=== PATIENT | female | born 1975 | race Caucasian/White ===

== ENCOUNTER 2019-08-26 18:18 | Emergency (ER) | payer BC, SELFPAY ==
[2019-08-26 18:20] VITALS: BP 133/83; PULSE 89; RESP 22; TEMP 36.4; O2SAT 99; BMI 27.8
--- NOTE | 2019-08-26 18:25 | EKG12_ITS ---
Test Reason : CHEST PAIN Blood Pressure : / mmHG Vent. Rate : 089 BPM Atrial Rate : 089 BPM P-R Int : 158 ms QRS Dur : 082 ms QT Int : 388 ms P-R-T Axes : 056 000 029 degrees QTc Int : 472 ms Normal sinus rhythm Normal ECG Confirmed by REEMA MAN ([id number]), greeting card editor HECTOR ZIMMERMAN ([id number]) on 09/02/2019 8:07:33 AM Referred By: ABIDA Confirmed By:REEMA MAN
--- NOTE | 2019-08-26 18:25 | CT_ITS ---
INDICATION: 43-year-old female. Abdominal pain COMPARISON: None. TECHNIQUE: Contiguous axial images were obtained through the abdomen after the administration of oral contrast, and intravenous contrast administration. CT scan done according to ALARA (As Low As Reasonably Achievable). CONTRAST: 100 mL of Omnipaque (350 mmol/mL) single-use vial was administered IV with 0 mL discarded. FINDINGS: Lung bases: Clear. Liver: No mass. No intrahepatic biliary dilatation. Gallbladder: No wall thickening. No stones. Common bile duct: Normal caliber. No stones. Spleen: Within normal limits. Pancreas: There is marked heterogeneous low-attenuation of the pancreatic head and uncinate process. Adrenals: No masses. Kidneys: No masses. No hydronephrosis. Lymph nodes: No adenopathy. Stomach, small bowel, and colon: There is severe bowel wall thickening and mural hyperenhancement involving the entire duodenum with associated mesenteric stranding and mild free fluid. The remainder the visualized large and small bowel is unremarkable in appearance. Peritoneal cavity: Prominent periduodenal stranding and free fluid. Osseous structures: No acute fracture or destructive lesion. Abdominal aorta: No aneurysm or dissection. CT/CTA Abdomen W/WO Contrast IMPRESSION: Acute inflammatory process involving the entire duodenum as well as the pancreatic head. It is difficult to determine if this process represents a primary duodenal etiology versus acute pancreatitis. Findings discussed with Physician: Roderick Davenport by Dr. Alba on 08/26/2019 7:39 PM via telephone. N.B. : The above information has been verbally conveyed by Enrique Alba to Roderick Davenport MD, on 08/26/2019 19:34:04 (ET). Electronically Signed: Enrique Alba, at 19:40 EDT Tel , Service support ,
--- NOTE | 2019-08-26 18:25 | CT_ITS ---
We are attempting to reach an attending provider to discuss findings. An addendum with communication details will be sent when the communication is complete. STUDY: CTA CHEST REASON FOR EXAM: Female, 43 years old. RADIATION DOSAGE (If Supplied By Facility): CTDIvol = ( 11.01 ) mGy, DLP = ( 700.82 ) mGycm TECHNIQUE: The examination was performed with the intravenous administration of 100 CC ISOUE 370. Post-processing of the angiographic images was performed, with multiplanar reformation and 3D reconstruction. Individualized dose optimization techniques were used for this CT. COMPARISON: None. FINDINGS: Minimally heterogeneous thyroid gland. Normal enhancement of the main pulmonary artery and right and left pulmonary arteries. Normal enhancement of the bilateral peripheral pulmonary arteries. There is no demonstrated pulmonary embolism. Normal thoracic aorta and visualized great vessels. There is no demonstrated aortic dissection. Normal heart and pericardium. Normal mediastinum. Normal hilar regions. Normal visualized trachea and bronchi. The lungs are well expanded. Normal pulmonary parenchyma. Partially calcified pleural-based nodule right upper lobe inferiorly measures 7 mm. Normal pleura. Normal chest wall structures. Normal osseous structures. Normal visualized upper abdomen. CT/CTA Chest W/WO Contrast IMPRESSION: No demonstrated pulmonary embolism or arterial dissection. Minimally heterogeneous thyroid can be further assessed with a dedicated thyroid ultrasound. At least partially calcified, 7 mm right pleural-based nodule as above. Fleischner Society Recommendations for Follow-up and Management of Nodules Smaller than 8 mm Detected Incidentally at Nonscreening CT. Nodule size < or = 4 mm: Low-Risk Patient - No follow-up needed. High-Risk Patient - Follow-up CT at 12 months; if unchanged, no further follow-up. Nodule size > 4-6 mm: Low-Risk Patient - Follow-up CT at 12 months; if unchanged, no further follow-up. High-Risk Patient - Initial follow-up CT at 6-12 months then at 18-24 months if no change. Nodule size > 6-8 mm: Low-Risk Patient - Initial follow-up CT at 6-12 months then at 18-24 months if no change. High-Risk Patient - Initial follow-up CT at 3-6 months then at 9-12 and 24 months if no change. Nodule size > 8 mm: Low-Risk Patient - Follow-up CT at around 3,9 and 24 months. Dynamic contrast-enhanced CT, PET and/or biopsy. High-Risk Patient - Same as for low-risk patient. Low-Risk = Minimal or absent history of smoking and of other known risk factors. High-Risk = History of smoking or of other known risk factors. Electronically Signed: Enrique Alba, at 19:31 EDT Tel , Service support ,
[2019-08-26] MEDS: 0.9% Normal Saline 1,000 ML 1000 ML IV (18:34)
[2019-08-26] MEDS: Ondansetron 4 MG/2 ML Vial IV (18:34)
--- NOTE | 2019-08-26 18:38 | ED.DCSUM_ITS ---
History of Present Illness Chief Complaint: Chest Pain Informant: Patient Onset: Today Context: Sudden Onset Timing: Continuous Current Severity: Moderate Maximum Severity: Severe Narrative: The patient is a 43-year-old female no significant medical history that presents to the emergency department with rather sudden onset midepigastric pain, nausea, vomiting, and pain into her back. The patient was in her normal state of health. She states she is been having some midepigastric pain and back pain along with heartburn for the past 2 days. She states today, however the pain was much worse. She was much more diaphoretic and nauseated. She denies any fevers or chills. She did recently start taking her control, but has no history of pulmonary embolus. There is no family history of dissection. Prior similar symptoms: No Recent Illness/Hospitalization: No Past Medical History - Allergies and Home Meds Allergies/Adverse Reactions: Allergies Sulfa (Sulfonamide Antibiotics) Allergy (Verified 08/26/19 18:19) Hives Primary Care Physician: Alondra Pierre MD [Primary Care Provider] - Prior records reviewed: Yes Past Medical History: None Surgical History: noncontributory Smoking Status: Never smoker Review of Systems General: Denies: Chills, Fever, Sweats Eyes: Denies: Visual changes - bilaterally, Diplopia ENT: Denies: Rhinorrhea, Sore throat Cardiovascular: Reports: Chest pain. Denies: Palpitations Respiratory: Reports: Dyspnea. Denies: Cough, Dyspnea on exertion Gastrointestinal: Reports: Nausea, Vomiting. Denies: Abdominal pain, Diarrhea, Melena, Hematochezia Genitourinary: Denies: Dysuria, Hematuria, Frequency Musculoskeletal: Denies: Back pain, Extremity Pain Skin: Denies: Rash, Wounds Neurological: Denies: Headache, Weakness, Numbness Physical Exam Vital Signs/Narrative: Vital Signs Temp Pulse Resp BP Pulse Ox 08/26/19 18:20 97.6 F L 89 22 H 133/83 H 99 Diagnostic/Tx/Re-eval Clinical Impression(s) from Imaging Studies Abdomen CTA 08/26/19 18:25 IMPRESSION: Acute inflammatory process involving the entire duodenum as well as the pancreatic head. It is difficult to determine if this process represents a primary duodenal etiology versus acute pancreatitis. Findings discussed with Physician: Roderick Davenport by Dr. Alba on 08/26/2019 7:39 PM via telephone. N.B. : The above information has been verbally conveyed by Enrique Alba to Roderick Davenport MD, on 08/26/2019 19:34:04 (ET). Electronically Signed: Enrique Alba, at 19:40 EDT Tel , Service support , ADDENDUM: 08/26/191946 IMPRESSION: Acute inflammatory process involving the entire duodenum as well as the pancreatic head. It is difficult to determine if this process represents a primary duodenal etiology versus acute pancreatitis. Findings discussed with Physician: Roderick Davenport by Dr. Alba on 08/26/2019 7:39 PM via telephone. N.B. : The above information has been verbally conveyed by Enrique Alba to Roderick Davenport MD, on 08/26/2019 19:34:04 (ET). Electronically Signed: Enrique Alba, at 19:40 EDT Tel , Service support , Chest CTA 08/26/19 18:25 IMPRESSION: No demonstrated pulmonary embolism or arterial dissection. Minimally heterogeneous thyroid can be further assessed with a dedicated thyroid ultrasound. At least partially calcified, 7 mm right pleural-based nodule as above. Fleischner Society Recommendations for Follow-up and Management of Nodules Smaller than 8 mm Detected Incidentally at Nonscreening CT. - Nodule size < or = 4 mm: Low-Risk Patient - No follow-up needed. High-Risk Patient - Follow-up CT at 12 months; if unchanged, no further follow-up. Nodule size > 4-6 mm: Low-Risk Patient - Follow-up CT at 12 months; if unchanged, no further follow-up. High-Risk Patient - Initial follow-up CT at 6-12 months then at 18-24 months if no change. Nodule size > 6-8 mm: Low-Risk Patient - Initial follow-up CT at 6-12 months then at 18-24 months if no change. High-Risk Patient - Initial follow-up CT at 3-6 months then at 9-12 and 24 months if no change. Nodule size > 8 mm: Low-Risk Patient - Follow-up CT at around 3,9 and 24 months. Dynamic contrast-enhanced CT, PET and/or biopsy. High-Risk Patient - Same as for low-risk patient. Low-Risk = Minimal or absent history of smoking and of other known risk factors. High-Risk = History of smoking or of other known risk factors. Electronically Signed: Enrique Alba, at 19:31 EDT Tel , Service support , ADDENDUM: 08/26/19 1941 IMPRESSION: No demonstrated pulmonary embolism or arterial dissection. Minimally heterogeneous thyroid can be further assessed with a dedicated thyroid ultrasound. At least partially calcified, 7 mm right pleural-based nodule as above. Fleischner Society Recommendations for Follow-up and Management of Nodules Smaller than 8 mm Detected Incidentally at Nonscreening CT. Nodule size < or = 4 mm: Low-Risk Patient - No follow-up needed. High-Risk Patient - Follow-up CT at 12 months; if unchanged, no further follow-up. Nodule size > 4-6 mm: Low-Risk Patient - Follow-up CT at 12 months; if unchanged, no further follow-up. High-Risk Patient - Initial follow-up CT at 6-12 months then at 18-24 months if no change. Nodule size > 6-8 mm: Low-Risk Patient - Initial follow-up CT at 6-12 months then at 18-24 months if no change. High-Risk Patient - Initial follow-up CT at 3-6 months then at 9-12 and 24 months if no change. Nodule size > 8 mm: Low-Risk Patient - Follow-up CT at around 3,9 and 24 months. Dynamic contrast-enhanced CT, PET and/or biopsy. High-Risk Patient - Same as for low-risk patient. Low-Risk = Minimal or absent history of smoking and of other known risk factors. High-Risk = History of smoking or of other known risk factors. N.B. : The above information has been verbally conveyed by Enrique Alba to Roderick Davenport MD, on 08/26/2019 19:34:26 (ET). Electronically Signed: Enrique Alba, at 19:31 EDT Tel , Service support , Abnormal Lab Results 08/26/19 08/26/19 08/26/19 18:45 18:45 19:52 WBC 12.0 H RBC 4.95 Hgb 14.8 Hct 45.0 MCV 90.9 MCH 29.9 MCHC 32.9 RDW Std Deviation 46.0 H RDW Coeff of Renita 14.0 Plt Count 296 MPV 10.4 Immature Gran % (Auto) 0.400 Neut % (Auto) 86.2 H Lymph % (Auto) 8.9 L [place] % (Auto) 4.1 Eos % (Auto) 0.2 Baso % (Auto) 0.2 Absolute Neuts (auto) 10.4 H Absolute Lymphs (auto) 1.07 Nucleated RBC % 0 Sodium 133 L Potassium 5.8 H Chloride 99 Carbon Dioxide 23.0 Anion Gap 11 BUN 15 Creatinine 0.72 Estim Creat Clear Calc 93.34 Est GFR (MDRD) Af Amer 112 Est GFR (MDRD) Non-Af 93 BUN/Creatinine Ratio 20.8 H Glucose 108 H Calcium 9.6 Total Bilirubin 0.50 AST 40 H ALT 25 Alkaline Phosphatase 48 Troponin I < 0.015 Total Protein 8.1 Albumin 3.5 Globulin 4.6 H Albumin/Globulin Ratio 0.8 L Amylase 40 Lipase 50 L - Medical Decision Making The patient presents with intermittent back pain for the past 5 days. Today, it radiated to her central abdomen into her chest with nausea and vomiting. She states that she was diaphoretic and short of breath. I was concerned initially for aortic dissection. IV was established. The patient was treated with analgesics and antiemetics with improvement of symptoms. Screening labs were obtained. She does have mild leukocytosis, otherwise labs are unremarkable. Amylase and lipase were both negative. Patient underwent CTA. There is no evidence of dissection or pulmonary embolus. She does have rather severe duodenitis with free fluid but no free air. I did discuss her case with surgery, who recommended transfer to tertiary facility she is going to require GI intervention. The patient was discussed with [facility]. She was accepted by Dr. Nazario. She will be transferred for pain control, nausea control, and GI evaluation. Impression 1. Severe duodenitis 2. Nausea and vomiting ED Disposition - Plan for ED Patient: Referrals: Alondra Pierre MD [Primary Care Provider] -
[2019-08-26] MEDS: Morphine 4 MG/ML Syringe IV ×2 (18:43→20:53)
[2019-08-26 18:57] LABS: Absolute Lymphocyte Count 1.07 X10^3/uL (0.83-4.51); Absolute Neutrophil Count 10.4 X10^3/uL (2.0-7.7); Basophil# 0.03 X10^3/uL; Basophil% 0.2 % (0-1); Eosinophil# 0.02 X10^3/uL; Eosinophils% 0.2 % (0-5); Hemoglobin 14.8 g/dL (12.0-15.0); Lymphocyte # 1.07 X10^3/ul (4.0); Lymphocyte % 8.9 % (19-41); Mean Corp Hgb Conc 32.9 g/dL (32-36); Mean Corpuscular Hgb 29.9 pg (27.0-32.0); Mean Corpuscular Volume 90.9 fL (81-99); Mean Platelet Vol. 10.4 fl (6.2-12.0); Monocyte# 0.49 X10^3/uL; Monocyte% 4.1 % (0-10); NRBC Flagged by Analyzer 0 % (0-5); Neutrophil # 10.35 X10^3/uL (2.7-7.7); Neutrophil % 86.2 % (47-70); Platelet Count 296 K/mm3 (150-450); Red Blood Count 4.95 M/mm3 (4.2-5.4)
[2019-08-26 19:21] LABS: ALB/GLOB Ratio 0.8 RATIO (0.9-2.4); AST(SGOT) 40 U/L (15-37); Alanine Aminotransfer ALT/SGPT 25 U/L (13-56); Albumin, Serum 3.5 g/dL (3.2-5.0); Alkaline Phosphatase 48 U/L (45-117); Anion Gap 11 (5-15); BUN 15 mg/dL (7-18); BUN/Creat Ratio 20.8 RATIO (10-20); Calcium,Total 9.6 mg/dL (8.5-10.1); Chloride 99 mmol/L (98-107); Creatinine, Serum 0.72 mg/dL (0.55-1.02); EST Glomerular Filtration Rate 93 mL/min (>60); Est Glom Filt Rate - Afr Amer 112 mL/min (>60); Estimated Creatinine Clearance 93.34 ml/min; Globulin 4.6 g/dL (2.2-4.2); Glucose 108 mg/dL (74-106); Lipase 50 U/L (73-393); Potassium 5.8 mmol/L (3.5-5.1); Protein, Total 8.1 g/dL (6.4-8.2); Sodium Level 133 mmol/L (136-145)
[2019-08-26 19:47] VITALS: BP 121/75; PULSE 85; RESP 22; O2SAT 99
[2019-08-26] MEDS: proMETHazine 25 MG/ML Syringe 6.25 MG IV (20:01)
[2019-08-26 20:10] VITALS: BP 122/67; PULSE 82; RESP 22; O2SAT 95
[2019-08-26 20:16] LABS: Amylase 40 U/L (25-115)
[2019-08-26] MEDS: 0.9% Normal Saline 1,000 ML 999 ML IV (20:41)
[2019-08-26 21:40] VITALS: BP 121/63; PULSE 82; RESP 17; O2SAT 94
[2019-08-26 21:56] VITALS: BP 112/71; PULSE 81; RESP 17; O2SAT 98
== END 2019-08-26 22:20 | disposition short-term general hospital (02) ==
LOC: ED 18:44
PROVIDERS: Emergency Provider Emergency Medicine; PCP Internal Medicine
DX: K29.80 Duodenitis without bleeding (principal); R11.2 Nausea with vomiting, unspecified
CPT/HCPCS: 71275; 74175; 80053; 82150; 83690; 84484; 85025; 93005; 96361; 96374; 96375; 96376; 99285; J7030; Q9967; A4216; J2405

== ENCOUNTER 2019-09-03 01:03 | Observation (INO) | payer BC, SELFPAY ==
[2019-09-03] VITALS (8 sets, daily range): BP systolic 91–144; BP diastolic 44–87; PULSE 74–104; RESP 16–18; TEMP 36.5–37.1; O2SAT 93–100; BMI 27.6; BMI 26.9; BMI 27.0
--- NOTE | 2019-09-03 01:21 | CT_ITS ---
STUDY: CT ABDOMEN AND PELVIS WITH CONTRAST REASON FOR EXAM: Female, 44 years old. Abdominal pain RADIATION DOSAGE (If Supplied By Facility): CTDIvol = ( 14.75 ) mGy, DLP = ( 978.07 ) mGycm TECHNIQUE: Transaxial images were obtained from the dome of the diaphragm to the symphysis pubis without oral contrast. IV 100mL Isovue-370 was administered. Sagittal and coronal images were reconstructed. Individualized dose optimization techniques were used for this CT. COMPARISON: 08/26/2019 FINDINGS: The visualized lung bases are unremarkable. The visualized portions of the heart are within normal limits. Normal liver. Normal gallbladder and extrahepatic biliary system. Normal spleen. Normal pancreas. Normal bilateral adrenal glands. Normal right kidney. Normal left kidney. Normal bilateral ureters. There is a small hiatal hernia. Remainder of the stomach is unremarkable. Marked concentric mucosal thickening of the entire duodenum and proximal jejunum, slightly worsened from prior imaging. There is a moderate amount of associated paraduodenal free fluid which tracks down the anterior perivascular retroperitoneal plane. Remaining small bowel loops are unremarkable. Appendix is visualized and is normal. Colon is normal. No free intraperitoneal air. Abdominal vasculature is unremarkable. Normal inferior vena cava. Normal urinary bladder. Uterus is normal. 3.9 cm hypoattenuated lesion associated with the right adnexa no free pelvic fluid. Small fat-containing umbilical hernia without bowel involvement. Normal osseous structures. CT/Abdomen/Pelvis W IV Cont ONLY IMPRESSION: 1. Findings most consistent with severe duodenitis/enteritis, slightly worsened from prior imaging with a moderate amount of associated paraduodenal free fluid which tracks down the anterior perivascular retroperitoneal planes. 2. 3.9 cm simple appearing right ovarian cyst. 3. Small hiatal hernia. Electronically Signed: Jcarlos Brown MD at 3:03 EDT Tel , Service support ,
[2019-09-03] MEDS: Ondansetron 4 MG/2 ML Vial IV ×2 (01:38→07:17)
[2019-09-03] MEDS: 0.9% Normal Saline 1,000 ML 1000 ML IV (01:38)
[2019-09-03] MEDS: Morphine 4 MG/ML Syringe IV ×2 (01:39→03:49)
[2019-09-03 01:48] LABS: Absolute Lymphocyte Count 0.95 X10^3/uL (0.83-4.51); Absolute Neutrophil Count 7.7 X10^3/uL (2.0-7.7); Basophil# 0.02 X10^3/uL; Basophil% 0.2 % (0-1); Eosinophil# 0.08 X10^3/uL; Eosinophils% 0.9 % (0-5); Hematocrit 45.3 % (37-47); Hemoglobin 14.8 g/dL (12.0-15.0); Lymphocyte # 0.95 X10^3/ul (4.0); Lymphocyte % 10.2 % (19-41); Mean Corp Hgb Conc 32.7 g/dL (32-36); Mean Corpuscular Hgb 29.4 pg (27.0-32.0); Mean Corpuscular Volume 89.9 fL (81-99); Mean Platelet Vol. 10.4 fl (6.2-12.0); Monocyte# 0.54 X10^3/uL; Monocyte% 5.8 % (0-10); NRBC Flagged by Analyzer 0 % (0-5); Neutrophil # 7.66 X10^3/uL (2.7-7.7); Neutrophil % 82.6 % (47-70); Platelet Count 344 K/mm3 (150-450); RBC Distribution Width CV 13.7 % (11.6-14.6); RBC Distribution Width SD 45.1 fl (35.1-43.9); Red Blood Count 5.04 M/mm3 (4.2-5.4); White Blood Count 9.3 K/mm3 (4.4-11.0)
[2019-09-03] MEDS: Famotidine 200 MG/20 ML MDV 20 MG in 0.9% Normal Saline (Pres. free 8 ML 300 MG IV (01:50)
[2019-09-03 01:59] LABS: Color, Urine Yellow (Yellow); Glucose, Dipstick Normal (Normal); Leukocyte Esterase-Dipstick 100 /ul (Negative); Mucous, Urine 0 SEEN /hpf (<or=2+); Nitrite-Dipstick Negative (Negative); Occult Blood-Urine 25 /ul (Negative); Protein-Dipstick Negative (Negative); Red Blood Cells-Urine 0 SEEN /hpf (0-5); Specific Gravity, Urine 1.025 (1.002-1.030); Urine Bilirubin Dipstick Negative (Negative); Urine Clarity Sl. Cloudy (Clear); Urine Urobilinogen Normal (Normal)
[2019-09-03 02:02] LABS: Internal QC Validated? YES +Cl - CLEAR BKGD; Pregnancy, Urine Negative Negative
[2019-09-03 02:15] LABS: AST(SGOT) 21 U/L (15-37); Alanine Aminotransfer ALT/SGPT 52 U/L (13-56); Albumin, Serum 3.4 g/dL (3.2-5.0); Alkaline Phosphatase 53 U/L (45-117); Anion Gap 8 (5-15); BUN 13 mg/dL (7-18); BUN/Creat Ratio 19.4 RATIO (10-20); Bilirubin, Direct 0.22 mg/dL (0.00-0.30); Calcium,Total 8.9 mg/dL (8.5-10.1); Chloride 106 mmol/L (98-107); Creatinine, Serum 0.67 mg/dL (0.55-1.02); EST Glomerular Filtration Rate 101 mL/min (>60); Est Glom Filt Rate - Afr Amer 122 mL/min (>60); Estimated Creatinine Clearance 95.41 ml/min; Globulin 4.7 g/dL (2.2-4.2); Glucose 134 mg/dL (74-106); Lipase 141 U/L (73-393); Protein, Total 8.1 g/dL (6.4-8.2); Sodium Level 137 mmol/L (136-145)
[2019-09-03 02:16] LABS: Ketone-Dipstick 150 mg/dl (Negative)
--- NOTE | 2019-09-03 02:29 | ED.VIS.GI ---
History of Present Illness Chief Complaint: Abd Pain Informant: Patient - Abdominal Pain/Flank Pain Onset: Days Context: Gradual Onset Timing: Intermittent Quality: Burning, Sharp Location: Epigastric - Nausea/Vomiting/Emesis GI Symptom: Nausea, Vomiting Onset: Today Quality: Nonbilious Narrative: Patient is a 44-year-old female with recent diagnosis of duodenitis that was transferred to [facility] for evaluation last week presented with recurrent epigastric abdominal pain and vomiting. Patient was admitted [facility] from 08/25 to 08/27. Patient states since she was discharged from the hospital she has had nausea in the evenings and mild discomfort but tonight her symptoms drastically worsened. States she has sharp burning pain in her epigastric region. She denies any radiation. She started having significant nausea and vomiting as well. She denies any black or blood in her vomit or her stool. Patient states when she was at [facility] they did a HIDA scan as well as an upper scope but did not find anything wrong with her. She was discharged home with Zofran and Protonix. She is continued to have some symptoms so her PCP had her increase her Protonix to twice a day and today was the first time she took the double dose. Patient denies any other complaints at this time. Past Medical History - Allergies and Home Meds Allergies/Adverse Reactions: Allergies Sulfa (Sulfonamide Antibiotics) Allergy (Verified 09/03/19 01:09) Hives Past Medical History: - - Heavy menstrual periods, GERD Surgical History: noncontributory Lives: Spouse/ Significant Other Smoking Status: Never smoker - Family History Maternal Family History: Reports: Diabetes, Heart Disease Paternal Family History: Reports: Diabetes Review of Systems General: Denies: Chills, Fever, Sweats Eyes: Denies: Visual changes - bilaterally, Diplopia ENT: Denies: Rhinorrhea, Sore throat Cardiovascular: Denies: Chest pain, Palpitations Respiratory: Denies: Dyspnea, Cough, Dyspnea on exertion Gastrointestinal: Reports: Abdominal pain, Nausea, Vomiting. Denies: Diarrhea, Melena, Hematochezia Genitourinary: Denies: Dysuria, Hematuria, Frequency Musculoskeletal: Denies: Back pain, Extremity Pain Skin: Denies: Rash, Wounds Neurological: Denies: Headache, Weakness, Numbness Physical Exam Vital Signs/Narrative: Vital Signs Temp Pulse Resp BP Pulse Ox 09/03/19 01:06 97.7 F L 97 18 144/87 H 98 Inital Vital Signs reviewed: Yes General: Well nourished, Well developed, Acute Distress - Secondary to pain Head: Normocephalic, Atraumatic Eyes: Perrl, EOMI ENT: Moist mucous membranes, No rhinorrhea Neck: Supple, Nontender, No JVD Cardiovascular: Regular rate, Regular rhythm, No murmurs Respiratory: No distress, CTA bilaterally, Chest nontender Abdomen: Soft, Nondistended, Normal bowel sounds, Tender - Epigastric region. Negative for: Guarding, Rebound tenderness Back: Nontender, Normal Inspection. Negative for: CVA tenderness Extremities: Nontender, No edema Skin: Normal color, No rash Neurological: Alert, Oriented x3, Cranial nerves II-XII grossly intact, Normal Strength, Normal Sensation Psychological: Normal affect, Normal Mood Diagnostic/Tx/Re-eval Clinical Impression(s) from Imaging Studies Abdomen/Pelvis CT 09/03/19 01:21 IMPRESSION: 1. Findings most consistent with severe duodenitis/enteritis, slightly worsened from prior imaging with a moderate amount of associated paraduodenal free fluid which tracks down the anterior perivascular retroperitoneal planes. 2. 3.9 cm simple appearing right ovarian cyst. 3. Small hiatal hernia. Electronically Signed: Jcarlos Brown MD at 3:03 EDT Tel , Service support , Laboratory Data 09/03/19 09/03/19 09/03/19 01:26 01:26 01:26 WBC 9.3 RBC 5.04 Hgb 14.8 Hct 45.3 MCV 89.9 MCH 29.4 MCHC 32.7 RDW Std Deviation 45.1 H RDW Coeff of Renita 13.7 Plt Count 344 MPV 10.4 Immature Gran % (Auto) 0.300 Neut % (Auto) 82.6 H Lymph % (Auto) 10.2 L [place] % (Auto) 5.8 Eos % (Auto) 0.9 Baso % (Auto) 0.2 Absolute Neuts (auto) 7.7 Absolute Lymphs (auto) 0.95 Nucleated RBC % 0 Sodium 137 Potassium 4.0 Chloride 106 Carbon Dioxide 23.0 Anion Gap 8 BUN 13 Creatinine 0.67 Estim Creat Clear Calc 95.41 Est GFR (MDRD) Af Amer 122 Est GFR (MDRD) Non-Af 101 BUN/Creatinine Ratio 19.4 Glucose 134 H Lactic Acid 1.4 Calcium 8.9 Total Bilirubin 0.50 Direct Bilirubin 0.22 AST 21 ALT 52 Alkaline Phosphatase 53 Troponin I < 0.015 Total Protein 8.1 Albumin 3.4 Globulin 4.7 H Lipase 141 Urine Color Urine Clarity Urine pH Ur Specific [place] Urine Protein Urine Glucose (UA) Urine Ketones Urine Occult Blood Urine Nitrite Urine Bilirubin Urine Urobilinogen Ur Leukocyte Esterase Urine RBC Urine WBC Ur Squamous Epith Cells Urine Bacteria Urine Mucus Urine Test 09/03/19 01:50 WBC RBC Hgb Hct MCV MCH MCHC RDW Std Deviation RDW Coeff of Renita Plt Count MPV Immature Gran % (Auto) Neut % (Auto) Lymph % (Auto) [place] % (Auto) Eos % (Auto) Baso % (Auto) Absolute Neuts (auto) Absolute Lymphs (auto) Nucleated RBC % Sodium Potassium Chloride Carbon Dioxide Anion Gap BUN Creatinine Estim Creat Clear Calc Est GFR (MDRD) Af Amer Est GFR (MDRD) Non-Af BUN/Creatinine Ratio Glucose Lactic Acid Calcium Total Bilirubin Direct Bilirubin AST ALT Alkaline Phosphatase Troponin I Total Protein Albumin Globulin Lipase Urine Color Yellow Urine Clarity Sl. Cloudy Urine pH 5.0 Ur Specific [place] 1.025 Urine Protein Negative Urine Glucose (UA) Normal Urine Ketones 150 H Urine Occult Blood 25 H Urine Nitrite Negative Urine Bilirubin Negative Urine Urobilinogen Normal Ur Leukocyte Esterase 100 H Urine RBC 0 SEEN Urine WBC 0-5 SEEN Ur Squamous Epith Cells 10-25 SEEN Urine Bacteria 2+ Urine Mucus 0 SEEN Urine Test Negative - Medical Decision Making She is evaluated for recurrent and worsening epigastric abdominal pain associate with nausea and vomiting. Patient is given morphine, IV fluids and Zofran for symptom control in the emergency room. She does require re-dosing of Zofran as well as pain medication while in the ER. Physical exam is only consistent for pain in her epigastric region on palpation. She is not have any peritoneal signs. Her blood work is largely unremarkable including CBC, CMP and lipase. I am unable to see the records from [facility] however they are requested. Patient's follow-up visit for her PCP from this week who states that patient had an extensive work-up including an EGD which was reportedly normal and patient was recommended daily PPI. HIDA scan showed no cholecystitis or gallbladder malfunction. CT the abdomen obtained today continues to show significant duodenitis that is slightly increased from last week. Patient will require admission for symptom control. Discussed the case with the hospitalist as I suspect patient any admission for symptom control secondary to her duodenitis/enteritis. Since she is already had complete GI evaluation this week I am not sure what the utility of transfer back to [facility] would be at this point. Hospitalist is willing to admit. Patient is agreeable this plan states she does not want to go back to [facility] as she was not happy with her care there. Patient is stable at time of disposition for the general medical floor. ED Disposition - Plan for ED Patient: Disposition: Acute Care Hospital [facility] Diagnosis: Duodenitis, Enteritis, Intractable abdominal pain
[2019-09-03 02:34] LABS: Lactic Acid 1.4 mmol/L (0.4-1.9)
[2019-09-03 02:45] LABS: White Blood Cells 0-5 SEEN /hpf (0-5)
[2019-09-03 02:46] LABS: Bacteria 2+ /hpf (None Seen); Squamous Epithelial Cells - UA 10-25 SEEN /hpf (5-10)
--- NOTE | 2019-09-03 03:42 | PCM.HP.STD ---
Problem List (1) Denies previous medical history Status: Acute (2) Duodenitis Status: Acute (3) Enteritis Status: Acute History of Present Illness Date of Admission: 09/03/19 Chief Complaint: nausea and vomiting. The patient is a 44 year old F with no previous medical history who presents emergency department with 1 week history of nausea and vomiting. Associated with her symptoms is diffuse abdominal pain. She described the pain as burning. She denies any aggravating or ameliorating factors to the pain. She has alternating constipation and diarrhea. In the last 24 hours she has had diarrhea. Prior to this she had constipation. Her stools are not loose but she has had multiple stools. Patient was seen emergency department on 08/26/2019 Past Medical History Medical History: Medical History (Last Updated 09/03/19 @ 05:[address] Ken Wooten MD) Denies previous medical history Allergies Sulfa (Sulfonamide Antibiotics) Allergy (Verified 09/03/19 01:09) Hives Home Medications: Ambulatory Orders Medication Instructions Recorded Norgestimate-Ethinyl Estradiol 1 tab PO DAILY 08/26/19 [Sabine-Linyah 28 Tablet] Ondansetron [Zofran Odt] 4 mg PO Q8H PRN PRN 09/03/19 Pantoprazole Sodium [Protonix] 20 mg PO BID 09/03/19 Surgical History: tonsillectomy Smoking Status: Never smoker - *Family History Maternal History Items: Diabetes, Heart Disease Paternal History Items: Diabetes Review of Systems Constitutional: Denies: Chills, Fever, Weight Change HEENT: Denies: Head Aches, Sinus Congestion, Sinus Drainage Cardiovascular: Denies: Chest Pain, Palpitations Respiratory: Denies: Cough, Shortness of breath at rest, Sputum production Gastrointestinal: Reports: Abdominal Pain, Diarrhea, Nausea, Vomiting Genitourinary: Denies: Dysuria Musculoskeletal: Denies: Joint Pain, Joint Tenderness Skin: Denies: Rash, Wounds Neurological: Denies: Numbness, Tingling, Focal weakness Psychiatric: Denies: Anxiety, Depression, Homicidal Ideations, Suicidal Ideations Hematologic/ Lymphatic: Denies: Easy Bruising, Easy Bleeding VTE Information - Inpt Only VTE Present on Admission: No VTE Mechan Device Prophylaxis: None VTE Pharm Prophylaxis ordered?: Yes Patient Problems: Active and Suspected Problems (Last Updated 09/03/19 @ 05:[address] Ken Wooten MD) Denies previous medical history (Acute) Duodenitis (Acute) Enteritis (Acute) - Physical Exam Vitals/I&O's: Vital Signs Temp Pulse Resp BP Pulse Ox 97.7 F L 97 18 144/87 H 98 09/03/19 01:06 09/03/19 01:06 09/03/19 01:06 09/03/19 01:06 09/03/19 01:06 Oxygen Delivery Method Room Air Weight: 75.5 kg Body Mass Index (BMI) 27.6 Intake and Output for Last 24 Hours 09/01/19 09/02/19 09/03/19 23:59 23:59 23:59 Intake Total Balance General: Alert, Oriented x3, Cooperative HEENT: Atraumatic, PERRLA, EOMI, Normocephalic Neck: Supple, No JVD, Negative Carotid Bruits Lungs: Clear to auscultation, Normal air movement Cardiovascular: Regular rate, Regular Rhythm, Normal S1, Normal S2, No murmurs Abdomen: Bowel Sounds Present, Soft, Hypoactive Bowel Sounds, Tender Extremities: No edema, Capillary Refill Less than 3 Seconds Skin: No rashes, No breakdown Musculoskeletal: No Tenderness to Palpation of Joints or Extremities Neurological: Cranial nerves II-XII grossly intact Psych/Mental Status: Normal Affect, Appropriate Laboratory Results 09/03/19 01:26: WBC 9.3, RBC 5.04, Hgb 14.8, Hct 45.3, MCV 89.9, MCH 29.4, MCHC 32.7, RDW Std Deviation 45.1 H, RDW Coeff of Renita 13.7, Plt Count 344, MPV 10.4, Immature Gran % (Auto) 0.300, Neut % (Auto) 82.6 H, Lymph % (Auto) 10.2 L, Sabine % (Auto) 5.8, Eos % (Auto) 0.9, Baso % (Auto) 0.2, Absolute Neuts (auto) 7.7, Absolute Lymphs (auto) 0.95, Nucleated RBC % 0 09/03/19 01:26: Sodium 137, Potassium 4.0, Chloride 106, Carbon Dioxide 23.0, Anion Gap 8, BUN 13, Creatinine 0.67, Estim Creat Clear Calc 95.41, Est GFR (MDRD) Af Amer 122, Est GFR (MDRD) Non-Af 101, BUN/Creatinine Ratio 19.4, Glucose 134 H, Calcium 8.9, Total Bilirubin 0.50, Direct Bilirubin 0.22, AST 21, ALT 52, Alkaline Phosphatase 53, Troponin I < 0.015, Total Protein 8.1, Albumin 3.4, Globulin 4.7 H, Lipase 141 09/03/19 01:26: Lactic Acid 1.4 09/03/19 01:50: Urine Color Yellow, Urine Clarity Sl. Cloudy, Urine pH 5.0, Ur Specific [place] 1.025, Urine Protein Negative, Urine Glucose (UA) Normal, Urine Ketones 150 H, Urine Occult Blood 25 H, Urine Nitrite Negative, Urine Bilirubin Negative, Urine Urobilinogen Normal, Ur Leukocyte Esterase 100 H, Urine RBC 0 SEEN, Urine WBC 0-5 SEEN, Ur Squamous Epith Cells 10-25 SEEN, Urine Bacteria 2+, Urine Mucus 0 SEEN, Urine Test Negative Assessment/Plan All Active Problems (Last Updated 09/03/19 @ 05:[address] Ken Wooten MD) Denies previous medical history (Acute) Duodenitis (Acute) Enteritis (Acute) The patient is a 44 year old F with no previous medical history who presents to the emergency department with 1 week history of nausea and vomiting; and abdominal pain and with an unrevealing examination at [facility]. Upon discharge from [facility] her PCP escalated her Protonix from once daily to twice daily. Reportedly, because of thyroid abnormalities on imaging her PCP ordered an outpatient thyroid ultrasound which patient is yet to do. Duodenitis and enteritis CT of abdomen and pelvis showed worsening adenitis and enteritis. Etiology unclear at this time. Protonix 40 mg IV twice daily ordered. Zofran PRN and Compazine PRN. Morphine for pain. Normal saline 75 mL's per hour. We will start a trial of antibiotics: Flagyl IV and Cipro ordered. Follow records from [facility] that were ordered at the emergency department. DVT prophylaxis Lovenox. Inpatient E&M: 60380 Init Hosp L3
[2019-09-03] MEDS: Metoclopramide 10 MG/2 ML Vial 5 MG IV (03:46)
[2019-09-03] MEDS: 0.9% Normal Saline 1,000 ML 75 ML IV (05:35)
[2019-09-03] MEDS: 0.9% Saline Lock 10 ML Syringe IV (05:35)
[2019-09-03] MEDS: proCHLORPERazine 10 MG/2 ML Vial 5 MG IV (05:35)
[2019-09-03] MEDS: Ciprofloxacin 400 MG/200 ML BAG 200 MG IV ×2 (05:58→19:55)
[2019-09-03] MEDS: metroNIDAZOLE 500 MG/100 ML BAG 100 MG IV ×3 (07:13→21:07)
[2019-09-03 07:48] LABS: Absolute Neutrophil Count 9.3 X10^3/uL (2.0-7.7); Basophil# 0.02 X10^3/uL; Basophil% 0.2 % (0-1); Hematocrit 45.3 % (37-47); Hemoglobin 14.8 g/dL (12.0-15.0); Lymphocyte % 3.1 % (19-41); Mean Corp Hgb Conc 32.7 g/dL (32-36); Mean Corpuscular Hgb 29.4 pg (27.0-32.0); Mean Corpuscular Volume 90.1 fL (81-99); Monocyte# 0.08 X10^3/uL; Monocyte% 0.8 % (0-10); NRBC Flagged by Analyzer 0 % (0-5); Neutrophil # 9.33 X10^3/uL (2.7-7.7); Neutrophil % 95.6 % (47-70); POSITIVE DIFFERENTIAL YES; Platelet Count 330 K/mm3 (150-450); RBC Distribution Width SD 44.8 fl (35.1-43.9); Red Blood Count 5.03 M/mm3 (4.2-5.4); White Blood Count 9.8 K/mm3 (4.4-11.0)
[2019-09-03 07:54] LABS: Differential Indicated SCAN CRITERIA MET
[2019-09-03 08:08] LABS: Anion Gap 7 (5-15); BUN 10 mg/dL (7-18); BUN/Creat Ratio 18.3 RATIO (10-20); Chloride 104 mmol/L (98-107); Creatinine, Serum 0.55 mg/dL (0.55-1.02); EST Glomerular Filtration Rate 128 mL/min (>60); Est Glom Filt Rate - Afr Amer 155 mL/min (>60); Estimated Creatinine Clearance 116.23 ml/min; Glucose 185 mg/dL (74-106); Potassium 3.8 mmol/L (3.5-5.1); Sodium Level 135 mmol/L (136-145)
[2019-09-03] MEDS: Morphine 2 MG/ML Syringe IV (08:14)
[2019-09-03 08:37] LABS: Differential Comment SCANNED
[2019-09-03] MEDS: proMETHazine 25 MG/ML Syringe 12.5 MG IM (08:49)
--- NOTE | 2019-09-03 09:48 | PCM.PN.BLA ---
Progress Note Patient is a 44-year-old lady admitted with abdominal pain with associated intractable nausea and vomiting. CT of the abdomen obtained on admission demonstrated Findings most consistent with severe duodenitis/enteritis, slightly worsened from prior imaging with a moderate amount of associated paraduodenal free fluid which tracks down the anterior perivascular retroperitoneal planes.. Admitted to regular nursing floor for symptomatic management. Patient was also started on Protonix drip. Patient seen and examined, her initial assessment including history and physical, diagnostic data, management orders reviewed will follow. STROKE Vital Signs/Narrative: Vital Signs Temp Pulse Resp BP Pulse Ox 09/03/19 08:15 98.4 F 104 H 16 121/44 H 100 09/03/19 07:06 93
--- NOTE | 2019-09-03 13:40 | CASEMGMT ---
RN JOSE ANGEL [employer] CM to room to meet with patient for initial transition planning/care coordination assessment. JAIMEE WALTER introduced self and role at [facility]. Pt voices understanding and consents to assessment at this time. Pt resting in bed in no distress at this time. @ bedside. Pt is A/O at this time and answers all questions appropriately. Care providers, pharmacy, and demographics verified/updated at this time. PCP: Dr Pierre Specialists: none Preferred Pharmacy: [facility] Insurance: [place] Prescription Benefit: yes Living Will/HPOA: States does not have LW or HCPOA . Interested in more information but states does not want to talk with SW at this time to complete paperwork. Provided information on advanced directives and given Social Service rac card with number to call if chooses in the future to utilize [facility] social work for advanced directive completion. LNOK: Ferny. Has 3 sons. Living Arrangements: Lives w/her and sons. Independent Transportation: Pt states drives self and states no transportation concerns at this time. also drives DME: Denies using any DME and denies needs. HHC/SNF: No history of either. No needs identified. Pt wishes to return home and states has no concerns with going home at time of discharge. CM to follow for any discharge planning/needs. Pt voices no concerns/needs at this time. Advised pt/ to ask for CM if any questions/concerns/needs arise. Voices understanding. PLAN: Home Michela PETERSON RN, CM
[2019-09-03] MEDS: Ensure Clear 120 ML Liquid PO (19:56)
[2019-09-03] MEDS: Acetaminophen 325 MG Tablet 650 MG PO (19:58)
[2019-09-04] MEDS: Acetaminophen 325 MG Tablet 650 MG PO (02:27)
[2019-09-04 02:30] VITALS: BP 96/59; PULSE 74; RESP 16; TEMP 36.7; O2SAT 98
[2019-09-04] MEDS: metroNIDAZOLE 500 MG/100 ML BAG 100 MG IV (05:19)
[2019-09-04 07:46] VITALS: O2SAT 99
[2019-09-04 08:40] VITALS: BP 103/71; PULSE 80; RESP 16; TEMP 36.7; O2SAT 98
--- NOTE | 2019-09-04 09:19 | US_ITS ---
STUDY: THYROID ULTRASOUND REASON FOR EXAM: Female, 44 years old. NODULE SEEN ON CT TECHNIQUE: Ultrasound evaluation of the thyroid was performed with real-time and static diaz-scale imaging. COMPARISON: Comparison is made with prior CT scan of the chest dated August 26, 2019. FINDINGS: RIGHT LOBE: The right lobe of the thyroid gland measures 4.9 cm x 1.9 cm x 1.8 cm. There is a homogeneous echotexture. 3 hypoechoic solid nodules are seen throughout the right lobe. The largest measures 1.4 signs by 1.2 size by 0.6 cm. This is in the mid pole. There is a 9 mm x 9 mm x 5 mm hypoechoic solid nodule in the upper pole as well as a 9 mm x 9 mm x 6 mm nodule in the lower pole that. LEFT LOBE: The left lobe of the thyroid gland measures 4.8 cm x 1.8 cm x 1.6 cm. There is a homogeneous echotexture. There is a 2.1 cm x 1.1 cm x 0.9 cm isoechoic solid/cystic nodule in the midpole. There is a 1.7 cm x 1 cm x 0.9 cm hypoechoic solid nodule in the lower pole. There is a 5 mm x 4 mm x 3 mm hypoechoic solid nodule in the upper pole. ISTHMUS: The isthmus measures 3.0 mm. The regional lymph nodes are normal. US/Thyroid IMPRESSION: Bilateral thyroid nodules with a dominant nodule in each lobe. A biopsy should be considered. Electronically Signed: Octaviano Gaona, at 12:49 EDT , Service support ,
[2019-09-04] MEDS: Ciprofloxacin 400 MG/200 ML BAG 200 MG IV (09:24)
[2019-09-04 10:29] LABS: Thyroid Stim Hormone (TSH) 1.11 uIU/mL (0.358-3.74)
--- NOTE | 2019-09-04 11:05 | DCINST_ITS ---
- Discharge Diagnoses Current Active Problems: Current Active and Chronic Problems (Last Updated 09/03/19 @ 05:[address] Ken Wooten MD) Denies previous medical history (Acute) Duodenitis (Acute) Enteritis (Acute) Intractable abdominal pain (Acute) You will use the following diet at home:: Regular Discharge Activity: Return to Normal Activity Allergies/Adverse Reactions: Allergies Sulfa (Sulfonamide Antibiotics) Allergy (Verified 09/03/19 01:09) Hives Medications to take at Discharge Norgestimate-Ethinyl Estradiol [Hyde-Linyah 28 Tablet] 1 tab PO DAILY 08/26/19 Ondansetron [Zofran Odt] 4 mg PO Q8H PRN PRN 09/03/19 Pantoprazole Sodium [Protonix] 20 mg PO BID 09/03/19 Ciprofloxacin [Cipro] 500 mg PO BID #7 tab 09/04/19 metroNIDAZOLE [Flagyl] 500 mg PO Q8H #10 tab 09/04/19 proMETHazine tablet [Phenergan tablet] 25 mg PO Q6H PRN PRN #20 tab 09/04/19 The following prescriptions were given: Ciprofloxacin [Cipro] 500 mg PO BID #7 tab Transmission Status: Pending to [address] metroNIDAZOLE [Flagyl] 500 mg PO Q8H #10 tab Transmission Status: Pending to [facility] [facility] proMETHazine tablet [Phenergan tablet] 25 mg PO Q6H PRN PRN #20 tab PRN Reason: Nausea/Vomiting Transmission Status: Pending to [facility] [facility] Primary Care Physician: Alondra Pierre MD [Primary Care Provider] - Please follow up with your Primary Care Physician in: in 5-7 days Test Results: Test results from this visit will be discussed in further detail at your follow- up appointment, if applicable. Proposed Discharge Date: 09/04/19
--- NOTE | 2019-09-04 11:06 | DS.PCM_ITS ---
Discharge Date and Diagnosis - Problem List Patient Problems: Active and Suspected Problems (Last Updated 09/03/19 @ 05:[address] Ken Wooten MD) Denies previous medical history (Acute) Duodenitis (Acute) Enteritis (Acute) Intractable abdominal pain (Acute) Date of Admission: 09/03/19 Date of Discharge: 09/04/19 - Primary Discharge Diagnosis Acute Problems: Active Problems (Last Updated 09/03/19 @ 05:[address] Ken Wooten MD) Denies previous medical history (Acute) Duodenitis (Acute) Enteritis (Acute) Intractable abdominal pain (Acute) Hospital Course and Treatment Imaging Results: Clinical Impression(s) from Imaging Studies Abdomen/Pelvis CT 09/03/19 01:21 IMPRESSION: 1. Findings most consistent with severe duodenitis/enteritis, slightly worsened from prior imaging with a moderate amount of associated paraduodenal free fluid which tracks down the anterior perivascular retroperitoneal planes. 2. 3.9 cm simple appearing right ovarian cyst. 3. Small hiatal hernia. Electronically Signed: Jcarlos Brown MD at 3:03 EDT Tel , Service support , Summary of Care Provided: Patient is a 44-year-old lady admitted with abdominal pain with associated intractable nausea and vomiting. CT of the abdomen obtained on admission demonstrated Findings most consistent with severe duodenitis/enteritis, slightly worsened from prior imaging with a moderate amount of associated paraduodenal free fluid which tracks down the anterior perivascular retroperitoneal planes.. Admitted to regular nursing floor for symptomatic management. Patient was also started on Protonix drip. Patient condition did improve with therapy was discharged home on Cipro and Flagyl in addition to Phenergan for nausea Patient apparently has thyroid nodules for which primary care physician requested thyroid ultrasound addition to his TSH (came back within normal). Test were performed prior to patient being discharged. Results to be sent to PCP Patient Problems: Active and Suspected Problems (Last Updated 09/03/19 @ 05:[address] Ken Wooten MD) Denies previous medical history (Acute) Duodenitis (Acute) Enteritis (Acute) Intractable abdominal pain (Acute) - Physical Exam Vitals/I&O's: Vital Signs Temp Pulse Resp BP Pulse Ox 98.0 F 80 16 103/71 98 09/04/19 08:40 09/04/19 08:40 09/04/19 08:40 09/04/19 08:40 09/04/19 08:40 Oxygen Delivery Method Room Air Weight: 74.7 kg Body Mass Index (BMI) 26.9 Intake and Output for Last 24 Hours 09/02/19 09/03/19 09/04/19 23:59 23:59 23:59 Intake Total 3850.0 / 3850.0 1640.0 / 1640.0 Balance 3850.0 / 3850.0 1640.0 / 1640.0 General: Oriented x3 HEENT: Atraumatic Lungs: Clear to auscultation Cardiovascular: Regular rate, Regular Rhythm Psych/Mental Status: Normal Affect Laboratory Results 09/04/19 09:37: TSH 1.11 09/04/19 09:37: Free T4 Pending, Free T3 pg/dL Pending Current Medications Acetaminophen (Tylenol) 650 mg PO Q6H PRN PRN PRN Reason: Pain Score 1-10/Temp > 100.7 F Last Admin: 09/04/19 02:27 Dose: 650 mg Documented by: Pantoprazole Sodium 40 mg/ (Sodium Chloride) 110 mls @ 330 mls/hr IV Q12 [facility] Last Infusion: 09/04/19 09:05 Dose: Infused Documented by: Ciprofloxacin (Cipro) 400 mg in 200 mls @ 200 mls/hr IV Q12 [facility] Last Infusion: 09/04/19 10:24 Dose: Infused Documented by: Metronidazole (Flagyl) 500 mg in 100 mls @ 100 mls/hr IV Q8 [facility] Last Infusion: 09/04/19 06:19 Dose: Infused Documented by: Sodium Chloride () 250 mls @ 15 mls/hr IV .[id number] PRN PRN Reason: Saline Flush Potassium Chloride/Dextrose/Sod Cl (Kcl 20meq In D5.45ns 1000ml) 1,000 mls @ 150 mls/hr IV .Q6H40M [facility] Last Infusion: 09/04/19 10:24 Dose: 150 mls/hr Documented by: Morphine Sulfate () 2 mg IV Q3H PRN PRN PRN Reason: Pain Score 6-10/10 Last Admin: 09/03/19 08:14 Dose: 2 mg Documented by: Norgestimate (Crenshaw-Linyah 28 Tablet) 1 each PO DAILY GUTIERREZ Last Admin: 09/03/19 14:23 Dose: Not Given Documented by: Ondansetron HCl (Zofran) 4 mg IV Q8H PRN PRN PRN Reason: NAUSEA/VOMITING Last Admin: 09/03/19 07:17 Dose: 4 mg Documented by: Promethazine HCl (Phenergan) 12.5 mg IM Q4H PRN PRN PRN Reason: NAUSEA/VOMITING Last Admin: 09/03/19 08:49 Dose: 12.5 mg Documented by: Sodium Chloride () 10 - 40 ml IV UD PRN PRN Reason: SALINE FLUSH Last Admin: 09/03/19 05:35 Dose: 20 ml Documented by: Discharge Diet: No Restrictions Discharge Activity: Return to Normal Activity Home Medications: Medications to take at Discharge Norgestimate-Ethinyl Estradiol [Crenshaw-Linyah 28 Tablet] 1 tab PO DAILY 08/26/19 Ondansetron [Zofran Odt] 4 mg PO Q8H PRN PRN 09/03/19 Pantoprazole Sodium [Protonix] 20 mg PO BID 09/03/19 Ciprofloxacin [Cipro] 500 mg PO BID #7 tab 09/04/19 metroNIDAZOLE [Flagyl] 500 mg PO Q8H #10 tab 09/04/19 proMETHazine tablet [Phenergan tablet] 25 mg PO Q6H PRN PRN #20 tab 09/04/19 Following Prescrptions Were Given to Patient: Ciprofloxacin [Cipro] 500 mg PO BID #7 tab Transmission Status: Pending to [address] metroNIDAZOLE [Flagyl] 500 mg PO Q8H #10 tab Transmission Status: Pending to [address] proMETHazine tablet [Phenergan tablet] 25 mg PO Q6H PRN PRN #20 tab PRN Reason: Nausea/Vomiting Transmission Status: Pending to [facility] Primary Care Physician: Alondra Pierre MD [Primary Care Provider] - Please follow up with your Primary Care Physician in: in 5-7 days Disposition: Home Minutes spent on discharge:: 35 Medical Necessity - Tobacco Use Smoking Status: Never smoker Meaningful Use Info Meaningful Use Diagnoses (Choose all that apply): None applicable OBSV E&M: 18683 Observation care discharge
[2019-09-04 11:20] LABS: Free T3 2.8 pg/mL (2.18-3.98); T4 Free Direct 1.16 ng/dL (0.76-1.46)
== END 2019-09-04 13:04 | disposition home or self-care (01) | DRG 392 ==
LOC: ED 01:57 → MS3 04:52
PROVIDERS: Admitting Provider Hospitalist; Emergency Provider Emergency Medicine; PCP Internal Medicine; Visit Provider Internal Medicine
DX: K29.80 Duodenitis without bleeding (principal); K52.9 Noninfective gastroenteritis and colitis, unspecified; K44.9 Diaphragmatic hernia without obstruction or gangrene; N83.291 Other ovarian cyst, right side; E04.2 Nontoxic multinodular goiter; Z79.899 Other long term (current) drug therapy; K21.9 Gastro-esophageal reflux disease without esophagitis
CPT/HCPCS: 36415; 74177; 76536; 80048; 80076; 81001; 81025; 83605; 83690; 84439; 84443; 84481; 84484; 85025; 96361; 96365; 96366; 96367; 96375; 96376; 99218; 99285; J7030; Q9967; A4216; G0378; J0744; J2405; J3490

== ENCOUNTER → 2019-09-10 | Outpatient (CLI) | payer BC, SELFPAY ==
[2019-09-03 04:49] VITALS: BMI 26.9
--- NOTE | 2019-09-10 | ASPSI_PTH ---
PATIENT: SEBASTIAN SAMSON LOC: [facility] U#:[id number] AGE/SX: 44/F ROOM: RE09/10/[address]: Dr. Rimma Viveros MD : 1975 BED: DIS: 09/10/2019 SPEC #: [id number] RECD: 09/11/19 12:33 STATUS: JO RECassie #: [id number] HATTIE: 09/10/19 00:[address]: Rimma Viveros DEPT: CYTOLOGY RECD BY: Kim Leon ENTERED: 09/11/19 13:54 SP TYPE: SANG DUTTA DR: Dr. Alondra Pierre MD Tissues: A - Thyroid gland, NOS B - Thyroid gland, NOS C - Thyroid gland, NOS D - Thyroid gland, NOS Procedures: Surgery Specimen Level IV Cytospin Fluid Cytology Other HEADER OPERATION: Ultrasound-guided fine needle aspiration bilateral thyroid PRE-OP DIAGNOSIS: Bilateral thyroid nodules TISSUE SUBMITTED: A - FNA right thyroid fluid for cytology, B - Right thyroid slides x6, C - FNA left thyroid fluid for cytology, D - Left thyroid slides x8 DIAGNOSIS CYTOLOGY A. Fine needle aspiration, right thyroid nodule (cytospin and cell block): Adequate for evaluation. Negative, consistent with follicular/colloid nodule with cystic change. B. Fine needle aspiration, right thyroid nodule (smears): Adequate for evaluation. Negative, consistent with benign follicular nodule. C. Fine needle aspiration, left thyroid nodule (cytospin and cell block): Negative for malignant cells. See comment. D. Fine needle aspiration, left thyroid nodule (smears): Adequate for evaluation. Negative, consistent with benign follicular/colloid nodule. AM:gordy 09/12/19 COMMENT C. The specimen primarily contains blood and rare follicular cells. CYTOLOGY STUDY Slides are reviewed. CYTOLOGY GROSS A - Received is 40 ml of colorless cloudy fluid labeled with the patient's name and and designated per the requisition as right thyroid. Submitted for cytology preparation including cell block. B - Received are six smears labeled with the patient's name and designated per the requisition as right thyroid. Submitted for staining. C - Received is 35 ml of light brown cloudy fluid labeled with the patient's name and and designated per the requisition as left thyroid. Submitted for cytology preparation including cell block. D - Received are eight smears labeled with the patient's name and designated per the requisition as left thyroid. Submitted for staining. / gordy 09/11/19 TC:5 CPT: 90839 x2, 00761 x2, 49884 x2
== END | disposition home or self-care (01) ==
LOC: LABSPEC 09-11 12:57
PROVIDERS: PCP Internal Medicine; Referring Provider Surgery; Visit Provider Surgery
DX: E04.2 Nontoxic multinodular goiter (principal)
CPT/HCPCS: 88108; 88161; 88305

== ENCOUNTER 2019-10-25 16:43 | Emergency (ER) | payer BC, SELFPAY ==
[2019-09-03 04:49] VITALS: BMI 26.9
[2019-10-25 16:44] VITALS: BP 133/90; PULSE 112; RESP 18; TEMP 36.7; O2SAT 100; BMI 27.9
--- NOTE | 2019-10-25 16:59 | ED.DCSUM_ITS ---
History of Present Illness Chief Complaint: Nausea/Vomiting Informant: Patient Onset: Today Current Severity: Moderate Maximum Severity: Moderate Narrative: Patient presents with recurrent upper abdominal pain with nausea and vomiting. Patient has now had 3 episodes of similar. The first time she was sent to [facility] where she states an EGD and a HIDA scan were unremarkable. On the second episode she was hospitalized overnight with a Protonix drip and symptoms improved. She was discharged on Cipro and Flagyl. Patient had an outpatient colonoscopy performed yesterday. Per family 5 biopsies were obtained with suspicion of colitis. She states she felt well last evening but this morning after eating breakfast developed abdominal pain with recurrent nausea and vomiting. They do suspect that she is lactose and wheat intolerance and she was sure to avoid these when she ate this morning. - Past Medical History (1) Duodenitis Status: Chronic (2) Enteritis Status: Chronic Past Medical History - Allergies and Home Meds Allergies/Adverse Reactions: Allergies Sulfa (Sulfonamide Antibiotics) Allergy (Verified 10/25/19 16:43) Hives Primary Care Physician: Alondra Pierre MD [Primary Care Provider] - Prior records reviewed: Yes Surgical History: tonsillectomy Lives: Spouse/ Significant Other Smoking Status: Never smoker - Family History Maternal Family History: Reports: Diabetes, Heart Disease Paternal Family History: Reports: Diabetes Review of Systems General: Denies: Chills, Fever Eyes: Denies: Visual changes - bilaterally ENT: Denies: Bilateral ear pain Cardiovascular: Denies: Chest pain Respiratory: Denies: Dyspnea, Cough Gastrointestinal: Reports: Abdominal pain, Nausea, Vomiting. Denies: Diarrhea Genitourinary: Denies: Dysuria Musculoskeletal: Denies: Swelling, Extremity Pain Skin: Denies: Rash Neurological: Denies: Headache Hematologic: Denies: Easy bruising, Easy bleeding Allergy: Denies: Uticaria Physical Exam Vital Signs/Narrative: Vital Signs Temp Pulse Resp BP Pulse Ox 10/25/19 16:44 98.1 F 112 H 18 133/90 H 100 Inital Vital Signs reviewed: Yes General: Well nourished, Well developed Head: Normocephalic ENT: Moist mucous membranes Neck: Supple Cardiovascular: Regular rate, Regular rhythm Respiratory: No distress, CTA bilaterally Abdomen: Soft, Normal bowel sounds, Tender - Mild diffuse tenderness palpation.. Negative for: Guarding, Rebound tenderness Skin: Normal color Neurological: Alert, Oriented x3 Psychological: Normal affect Diagnostic/Tx/Re-eval Impressions Abdomen/Pelvis CT 10/25/19 17:00 IMPRESSION: There is significant edematous thickened wall noted of the ascending colon and terminal ileum with adjacent mesenteric stranding/fluid along the paracolic gutter. This is suspicious for possible Crohn''s disease. Left adnexal cystic lesion. Mild pelvic fluid. Electronically Signed: Deangelo Al DO at 20:02 EDT Tel [phone], Service support , 10/25/19 17:00 Abdomen/Pelvis WITH Contrast [CT] Stat Laboratory Results 10/25/19 10/25/19 10/25/19 17:07 17:07 17:59 WBC 13.8 H RBC 5.26 Hgb 15.4 H Hct 46.6 MCV 88.6 MCH 29.3 MCHC 33.0 RDW Std Deviation 43.4 RDW Coeff of Renita 13.4 Plt Count 304 MPV 10.2 Immature Gran % (Auto) 0.400 Neut % (Auto) 87.7 H Lymph % (Auto) 6.7 L [place] % (Auto) 4.9 Eos % (Auto) 0.1 Baso % (Auto) 0.2 Absolute Neuts (auto) 12.1 H Absolute Lymphs (auto) 0.93 Nucleated RBC % 0 Sodium Cancelled 139 Potassium Cancelled 4.0 Chloride Cancelled 107 Carbon Dioxide Cancelled 25.0 Anion Gap Cancelled 7 BUN Cancelled 10 Creatinine Cancelled 0.70 Estim Creat Clear Calc Cancelled 91.32 Est GFR (MDRD) Af Amer Cancelled 117 Est GFR (MDRD) Non-Af Cancelled 97 BUN/Creatinine Ratio Cancelled 14.4 Glucose Cancelled 100 Calcium Cancelled 9.0 Total Bilirubin Cancelled 0.60 Direct Bilirubin Cancelled 0.16 AST Cancelled 26 ALT Cancelled 27 Alkaline Phosphatase Cancelled 46 Total Protein Cancelled 7.4 Albumin Cancelled 3.2 Globulin Cancelled 4.2 Lipase Cancelled 45 L - Medical Decision Making Patient was initially treated with fentanyl and Phenergan. She did have vomiting after her p.o. contrast and was remedicated with Reglan and Benadryl. CT scan shows concern for Crohn's disease with significant inflammation of the entire a sending colon. Dr. Viveros who did her colonoscopy yesterday reviewed the images. She believes that the patient does have Crohn's disease although is awaiting biopsy results. She would prefer patient be transferred to a facility with GI coverage if she does not treat Crohn's disease. After speaking with patient and they prefer to go to [facility]. I will make phone calls for transfer. ED Disposition - Plan for ED Patient: Disposition: [facility] Diagnosis: Exacerbation of Crohn's disease Referrals: Alondra Pierre MD [Primary Care Provider] -
--- NOTE | 2019-10-25 17:00 | CT_ITS ---
STUDY: CT ABDOMEN AND PELVIS WITH CONTRAST REASON FOR EXAM: Female, 44 years old. ABD PAIN FOLLOWING COLONSCOPY 1 DAY AGO RADIATION DOSAGE (If Supplied By Facility): CTDIvol = ( 11.175 ) mGy, DLP = ( 830.73 ) mGycm TECHNIQUE: Transaxial images were obtained from the dome of the diaphragm to the symphysis pubis without oral contrast. Oral and amp; IV Gastrografin and amp; 100mL Isovue-300 was administered. Sagittal and coronal images were reconstructed. Individualized dose optimization techniques were used for this CT. COMPARISON: September 03, 2019 FINDINGS: There is a nonspecific 5 mm pleural-based nodular density of the right middle lobe. The visualized portions of the heart are within normal limits. Normal liver. Trace perihepatic fluid. Normal gallbladder and extrahepatic biliary system. Normal spleen. Normal pancreas. Normal bilateral adrenal glands. Normal right kidney. Normal left kidney. Normal visualized stomach. Normal small intestine. There is significant edematous thickened wall noted of the ascending colon and terminal ileum with adjacent mesenteric stranding/fluid along the paracolic gutter. The appendix is visualized and appears normal. Normal abdominal aorta. Normal inferior vena cava. Normal retroperitoneum. Normal urinary bladder. Left adnexal 5.4 cm cystic lesion is noted. Mild pelvic fluid. Normal abdominal wall. Normal osseous structures. CT/Abdomen/Pelvis WITH Contrast IMPRESSION: There is significant edematous thickened wall noted of the ascending colon and terminal ileum with adjacent mesenteric stranding/fluid along the paracolic gutter. This is suspicious for possible Crohn''s disease. Left adnexal cystic lesion. Mild pelvic fluid. Electronically Signed: Deangelo Al DO at 20:02 EDT Tel [phone], Service support ,
[2019-10-25 17:18] LABS: Absolute Lymphocyte Count 0.93 X10^3/uL (0.83-4.51); Absolute Neutrophil Count 12.1 X10^3/uL (2.0-7.7); Basophil# 0.03 X10^3/uL; Basophil% 0.2 % (0-1); Eosinophil# 0.01 X10^3/uL; Eosinophils% 0.1 % (0-5); Hematocrit 46.6 % (37-47); Hemoglobin 15.4 g/dL (12.0-15.0); Lymphocyte # 0.93 X10^3/ul (4.0); Lymphocyte % 6.7 % (19-41); Mean Corpuscular Hgb 29.3 pg (27.0-32.0); Mean Corpuscular Volume 88.6 fL (81-99); Mean Platelet Vol. 10.2 fl (6.2-12.0); Monocyte# 0.67 X10^3/uL; Monocyte% 4.9 % (0-10); NRBC Flagged by Analyzer 0 % (0-5); Neutrophil # 12.11 X10^3/uL (2.7-7.7); Neutrophil % 87.7 % (47-70); Platelet Count 304 K/mm3 (150-450); RBC Distribution Width CV 13.4 % (11.6-14.6); RBC Distribution Width SD 43.4 fl (35.1-43.9); Red Blood Count 5.26 M/mm3 (4.2-5.4); White Blood Count 13.8 K/mm3 (4.4-11.0)
[2019-10-25] MEDS: 0.9% Normal Saline 1,000 ML 150 ML IV (17:19)
[2019-10-25] MEDS: proMETHazine 25 MG/ML Syringe 12.5 MG IV ×2 (17:20→21:25)
[2019-10-25] MEDS: fentaNYL 100 MCG/2 ML Ampul 25 MCG IV (17:20)
[2019-10-25] MEDS: Metoclopramide 10 MG/2 ML Vial IV (18:25)
[2019-10-25] MEDS: DiphenhydrAMINE 50 MG/ML Syringe 25 MG IV (18:25)
[2019-10-25 18:26] LABS: AST(SGOT) 26 U/L (15-37); Alanine Aminotransfer ALT/SGPT 27 U/L (13-56); Albumin, Serum 3.2 g/dL (3.2-5.0); Alkaline Phosphatase 46 U/L (45-117); Anion Gap 7 (5-15); BUN 10 mg/dL (7-18); BUN/Creat Ratio 14.4 RATIO (10-20); Bilirubin, Direct 0.16 mg/dL (0.00-0.30); Chloride 107 mmol/L (98-107); EST Glomerular Filtration Rate 97 mL/min (>60); Est Glom Filt Rate - Afr Amer 117 mL/min (>60); Estimated Creatinine Clearance 91.32 ml/min; Globulin 4.2 g/dL (2.2-4.2); Glucose 100 mg/dL (74-106); Lipase 45 U/L (73-393); Protein, Total 7.4 g/dL (6.4-8.2); Sodium Level 139 mmol/L (136-145)
[2019-10-25] MEDS: Morphine 4 MG/ML Syringe IV (21:02)
[2019-10-25 21:06] VITALS: BP 96/58; PULSE 100; RESP 16; O2SAT 96
[2019-10-25 21:19] VITALS: BP 104/79; PULSE 90; O2SAT 100
[2019-10-25 22:24] VITALS: BP 104/79; PULSE 90; RESP 16; TEMP 36.7; O2SAT 100
== END 2019-10-25 22:31 | disposition short-term general hospital (02) ==
PROVIDERS: Emergency Provider Emergency Medicine; PCP Internal Medicine
DX: K50.90 Crohn's disease, unspecified, without complications (principal); Z87.19 Personal history of other diseases of the digestive system
CPT/HCPCS: 74177; 80048; 80076; 83690; 85025; 96361; 96374; 96375; 96376; 99285; J7030; J7040; Q9967; A4216

== ENCOUNTER 2020-07-08 05:33 | Day surgery (SDC) | payer BC, SELFPAY ==
[2020-07-05 17:35] LABS: Hematocrit 39.6 % (37-47); Hemoglobin 12.5 g/dL (12.0-15.0); Mean Corp Hgb Conc 31.6 g/dL (32-36); Mean Corpuscular Hgb 28.3 pg (27.0-32.0); Mean Corpuscular Volume 89.8 fL (81-99); Mean Platelet Vol. 10.5 fl (6.2-12.0); Platelet Count 246 K/mm3 (150-450); RBC Distribution Width SD 46.5 fl (35.1-43.9); Red Blood Count 4.41 M/mm3 (4.2-5.4); White Blood Count 5.4 K/mm3 (4.4-11.0)
[2020-07-08] VITALS (15 sets, daily range): BP systolic 79–108; BP diastolic 41–73; PULSE 58–86; RESP 14–16; TEMP 36.3–37.3; O2SAT 98–100; BMI 24.1
--- NOTE | 2020-07-08 | HYST_PTH ---
PATIENT: SEBASTIAN SAMSON LOC: [facility] [place] U#:[id number] AGE/SX: 44/F ROOM: RE07/08/[address]: Dr. Peter Xiao MD : 1975 BED: DIS: 07/08/2020 SPEC #: [id number] RECD: 07/08/20 14:00 STATUS: JO DEL ANGEL #: [id number] HATTIE: 07/08/20 00:[address]: Peter Xiao DEPT: SURGICAL PATHOLOGY RECD BY: Jcarlos Garrett ENTERED: 07/08/20 14:00 SP TYPE: HYSTERECT OTHR DR: Dr. Alondra Pierre MD Tissues: Uterus, NOS Procedures: Surgery Specimen Level V HEADER OPERATION: ERAS, robotic total laparoscopic hysterectomy, bilateral salpingectomy PRE-OP DIAGNOSIS: Irregular menstrual bleeding, breakthrough bleeding TISSUE SUBMITTED: Uterus, cervix, bilateral fallopian tubes MICROSCOPIC DIAGNOSIS Uterus, cervix, bilateral fallopian tubes, hysterectomy and bilateral salpingectomy: Cervix ? chronic inflammation and squamous metaplasia. Endometrium ? secretory endometrium. Myometrium ? intramural, submucosal and subserosal nodular leiomyomas (largest measuring 3 cm in greatest dimension). Focal adenomyosis. Bilateral fallopian tubes - no pathologic diagnosis. SJ:gordy 07/09/2020 MICROSCOPIC DESCRIPTION Slides are reviewed. GROSS DESCRIPTION Received in fixative is one container labeled with the patient's name and designated uterus, cervix, bilateral fallopian tubes. The specimen consists of a hysterectomy specimen consisting of uterus with cervix and detached bilateral fallopian tubes. The uterus with cervix weighs 200 gm and measures 11 x 7 x 6.5 cm. The serosal surface is olivo, glistening and contains nodular masses. The ectocervical mucosa is congested. The external os is slit-like in contour. The endocervical canal measures 4 cm in length and the endocervical mucosa is olivo, glistening and unremarkable. The triangular endometrial cavity measures 5.5 cm in length and 3 cm in width. The endometrial cavity is focally compressed due to presence of submucosal nodular masses. The endometrium is olivo, glistening without any mass lesion and measures 0.2 cm in thickness. Sections of the uterine wall reveal intramural, submucosal and subserosal nodular masses. The largest mass measures up to 3 cm in greatest dimension. The largest mass is submucosal in location. Sections of these masses reveal olivo whorled cut surfaces without areas of hemorrhage, necrosis or cystic degeneration. The uninvolved uterine wall measures up to 3 cm in thickness. The detached bilateral fallopian tubes are not identified as right or left and measures 6.5 cm in length and 0.5 cm in diameter and 7 cm in length and 0.5 cm in diameter. The fimbrial end is identified. Sections reveal unremarkable cut surfaces. Electronic Technician sections are submitted in 11 cassettes as follows: 1 - anterior cervix, 2 - posterior cervix, 3 & 4 - anterior uterine wall, smaller nodular masses, 5?&?6 - posterior uterine wall, smaller nodular masses, 7 - larger mass, submucosal nodular mass, 8??intermediate size mass, subserosal nodular mass, 9 - smaller nodular masses, 10 & 11 - bilateral fallopian tubes with each cassette containing one fallopian tube. / MARIALUISA:gordy 07/08/20 TC:1 CPT: 19194
[2020-07-08 06:06] LABS: Internal QC Validated? YES +Cl - CLEAR BKGD; Pregnancy, Urine Negative Negative
[2020-07-08 06:36] LABS: Hemoglobin 12.9 g/dL (12.0-15.0); Mean Corp Hgb Conc 31.5 g/dL (32-36); Mean Corpuscular Hgb 28.7 pg (27.0-32.0); Mean Corpuscular Volume 91.3 fL (81-99); Mean Platelet Vol. 10.2 fl (6.2-12.0); Platelet Count 243 K/mm3 (150-450); RBC Distribution Width SD 47.6 fl (35.1-43.9); Red Blood Count 4.49 M/mm3 (4.2-5.4); White Blood Count 4.6 K/mm3 (4.4-11.0)
[2020-07-08] MEDS: Acetaminophen 500 MG Tablet 1000 MG PO ×2 (06:36→13:11)
[2020-07-08] MEDS: Lactated Ringers 1,000 ML 40 ML IV ×3 (06:36→11:35)
[2020-07-08] MEDS: Gabapentin 600 MG Tablet PO (06:37)
[2020-07-08 06:40] LABS: Partial Thromboplast Time 28.6 Seconds (24.1-36.2)
[2020-07-08 06:47] LABS: International Normalized Ratio 0.9
[2020-07-08 06:48] LABS: AST(SGOT) 9 U/L (15-37); Alanine Aminotransfer ALT/SGPT 18 U/L (13-56); Albumin, Serum 3.4 g/dL (3.2-5.0); Alkaline Phosphatase 59 U/L (45-117); Bilirubin, Direct 0.13 mg/dL (0.00-0.30); Globulin 3.5 g/dL (2.2-4.2); Protein, Total 6.9 g/dL (6.4-8.2)
[2020-07-08 07:10] LABS: Bedside Glucose 71 mg/dL (70-110)
--- NOTE | 2020-07-08 07:20 | HP.PCM.OB_ITS ---
History and Physical Date of Admission: 07/08/20 Surgical History and Physical Name: SEBASTIAN PRESSLEY Age: 44 Date of : 1975 Sebastian Pressley, a 44 year old female 3 0 0 0 3, presents for Robotic assisted total laparoscopic hysterectomy bilateral salpingectomy. Cystoscopy. Possible bilateral oophorectomy on 07/08/2020 at 7:30. 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 Pt has been struggling with heavy bleeding for the past few years. She switched to [facility] where they put her on an OCP 07/2019. Pt felt like the OCP increased her GI issues as she was hospitalized 3 times for duodenitis. Colonoscopy done in 10/2019. She was referred to Dr. Aleman who suggested trying an IUD. Pt feels as if she was not listened to by Dr. Aleman and does not want an IUD as she thinks her issues are hormone related. As far as bleeding, it is very constant. Occasionally bleeding reduces to spotting.Overall pt feels very unwell most of the time and complains of constant pain/ discomfort. [facility] for RAH/BS poss oopoherectomy, cycstoscopy on 07-08-20. Consents signed. Voiced understanding. No changes to her health since her last visit. MEDICATIONS HISTORY: Patient is also takin. Multi For Her 18 mg iron-600 mcg capsule, daily ALLERGIES: Sulfonamides, Rash, Sulfa (Sulfonamide Antibiotics) and Rash Infections - Chicken pox Illnesses - none Accidents - None Hospitalizations - Childbirth and see surgery Review of Systems: GENERAL - Denies fever, or chills SKIN - Denies skin changes EYES - Denies visual changes EARS - Denies difficulty hearing NOSE - Denies nasal congestion or bleeding MOUTH - Denies sore throat or difficulty swallowing NECK - Denies pain or swelling RESPIRATORY - Denies shortness of breath or wheezing CARDIOVASCULAR - Denies palpitations or chest pain GASTROINTESTINAL - Denies nausea, vomiting, diarrhea, constipation GENITOURINARY - Denies dysuria, frequency of urination, incontinence of urine MUSCULOSKELETAL - Denies joint or muscle pain NEUROLOGICAL - Denies localized numbness or weakness PSYCHIATRIC - Denies depression or anxiety ENDOCRINE - Denies heat or cold intolerance, weight loss or gain HEMATO-IMMUNOLOGIC - Denies excessive bleeding with cuts SOCIAL HISTORY: Alcohol Use - denies drinking Smoking - denies smoking Lifestyle - Exercise - minimal 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 Maternal history of throat cancer. Paternal history of liver cancer. Father: skin cancer. MENSTRUAL HISTORY: LMP Known?- Approximate-Month KnownAmount/Duration - 5 days, Regularity - bleeds between periods, Frequency - monthly days, LMP - 07/04/19, Age Onset Menarche - 11 PAST PREGNANCIES: Total Pregnancies - 3; Full Term Pregnancies - 3; Premature - 0; Abortions, Induced - 0; Abortions, Spontaneous - 0; Ectopics - 0; Multiple Births - 0; Living Children - 3 SURGICAL HISTORY: 1. tonsilectomy age 15 ; - 2. [facility] Teeth Removal ; - PHYSICAL EXAM BP- 112/80 Sitting, Right arm, regular cuff Weight- 150.81735 lbs Height- 65 inch BMI:25.01 CONSTITUTIONAL - NAD, well nourished, and well developed SKIN - No rash, lesions, or ulcers HEENT - Normocephalic, PERRLA, EOMI NECK - No nodes, no nuchal rigidity and thyroid normal size and texture LYMPH NODES - Palpation of lymph nodes in neck and groins within normal limits ABDOMEN - Without hepatosplenomegaly, distention, masses, rebound, or guarding; normal bowel sounds; no hernias EXTREMITIES - No edema or calf tenderness NEUROLOGICAL - Cranial nerves II-XII grossly intact PSYCHIATRIC - A and O to time, place, person, mood and affect ASSESSMENT/PLAN: 1. Irregular Menstrual Bleed, Also BTB, Pelvic Pain and Unspec Pt with heavy constant periods all month. Also has pressure and pelvic pain. Pt original seen by [facility] INSURANCE ACCOUNT EXECUTIVE then Dr. Nino found to have fibroids and EMB performed. Offered IUD vs hysterectomy, no ablation offered. Pt for second opinion Records from [facility], CBC wnl. EMB neg. U/s uterus 11.6x6.5x7.8, anterior fibroid 3x3.3cm left lateral 2.3x2.0, right lower uterus 1.9x1.6cm. Some intramural and some subserosal Overall educated pt on findings. Discussed IUD vs ablation vs hysterectomy r/b/a including failure rates higher with ablation and fibroids. Pt states understanding Educated pt she has higher failure rates for bleeding and not certainty with pain control with any surgery based on her complex eitiology Pt elects for hysterectomy Pt scheduled for Robotic assisted Total Laparoscopic hysterectomy, bilateral salpingectomy, cystoscopy. Educated pt on ovarian conservation, pt agrees to keeping ovaries and only to remove if surgically necessary Pt on no medications, no previous abdominal surgeries. Educated on r/b/a of RA TLH BS including risk with fibroids. Pt states understanding and wishes to proceed. 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
[2020-07-08] MEDS: Cefazolin 2 GM in 0.9% Normal Saline 100 ML IV (07:24)
--- NOTE | 2020-07-08 10:26 | PCM.DC ---
Discharge Instructions Diet Discharge Diet: No restrictions Activity Discharge Activity: Return to Normal Activity, May Drive, May not drive while taking narcotic pain medications., May Shower and - (no tub baths for 2 weeks) May resume sexual activity in: 4-6 weeks Lifting Restrictions: no lifting over 25 pounds for 3 weeks Dressing / Incision Call your doctor if your incision/area has: Continuous Slow Oozing, Increased Pain/ Swelling and Foul Smelling Discharge Call your doctor if you observe: Fever of 101 or Higher, Shortness of breath and Chest pain Follow Up Care Please Follow Up With: Peter Xiao MD When: 2 weeks postoperative Test Results: Test results from this visit will be discussed in further detail at your follow-up appointment, if applicable. Discharge Plan Admission Attending Provider: Peter Xiao Primary Care Provider: Alondra Pierre Discharge Orders/Prescriptions Prescriptions: New oxycodone 5 mg capsule 5 mg PO Q6H PRN (Reason: pain (scale score 7-10)) 6 Days Qty: 24 RF: 0 Referrals / Follow Up: Alondra Pierre MD [Primary Care Provider] - Disposition Discharge Orders: Discharge Patient (Routine); Ordered 07/08/20 Ordered By: Dr. Peter Xiao
[2020-07-08] MEDS: Ketorolac 30 MG/ML Syringe IV (10:46)
--- NOTE | 2020-07-08 10:52 | SUR.PHASEI ---
AT 10:45, BERNARD CATHETER DISCONTINUED INTACT
[2020-07-08] MEDS: Ondansetron 4 MG/2 ML Vial IV (11:00)
--- NOTE | 2020-07-08 11:31 | PCM.OPRPT ---
Report of Operation Date of Procedure: 07/08/20 Pre-Operative Diagnosis: Abnormal uterine bleeding, leiomyomas Post-Operative Diagnosis: Abnormal uterine bleeding, leiomyomas Surgery/Procedure Performed:: Robotic assisted total laparoscopic hysterectomy bilateral salpingectomy, cystoscopy Description of Surgical Findings:: Surgeon: Peter Xiao MD Anesthesia: General EBL: 100 cc Urine output: 330 cc IV fluids: 1500 cc Complications: None Specimen: Uterus cervix bilateral fallopian tubes Findings: Multiple large fibroids including anterior x2 left lateral and posterior. Fallopian tubes and ovaries appear within normal limits. Postoperative cystoscopy noted bilateral ureteral jets and no pathology noted. Consent: Patient with abnormal uterine bleeding and leiomyomas elects for robotic assisted total laparoscopic hysterectomy bilateral salpingectomy and cystoscopy. Patient understands the risks of the procedure include but are not limited to visceral or vascular injury, prolonged hospitalization, blood loss and need for transfusion, reoperation. Patient state understanding wish to proceed. All questions were answered consent was signed. Procedure: Patient was brought back to the OR where general anesthesia found to be adequate. 2 g of Ancef were given for infection prophylaxis. Patient was prepared and draped in dorsolithotomy position with yellowfin stirrups. A weighted speculum placed posterior aspect of the vagina. Cervical dilators used to dilate cervix. Uterine manipulator was placed. Varies needle was inserted at the umbilicus. Water safety test was passed. Abdomen was insufflated. 8 mm trocar placed at the midline supraumbilical. Laparoscope was inserted above findings were noted. Bilateral left and right lower quadrant 8 mm trochars were inserted under direct visualization. Left upper quadrant 8 mm trocar was inserted under direct visualization. Right upper quadrant 5 mm trocar was inserted under direct visualization. Robot was docked. Using a fenestrated bipolar monopolar scissors the right round ligament was identified cut and cauterized anterior and posterior portions of the broad ligament were carefully dissected and the bladder flap was developed. Right fallopian tube was identified to the fimbriae mesosalpinx was cut and cauterized, fallopian tube was removed from the abdominal cavity, and sent to pathology. Right utero-ovarian ligament was identified cut and cauterized. Right uterine vessels were skeletonized. Right uterine vessels were cut and cauterized and lateralized beyond the level of colpotomy cup. Left round ligament was identified cut and cauterized anterior and posterior portions of the broad ligament were dissected bladder flap was fully developed beyond the level of the colpotomy cup. Left fallopian tube was identified out to the fimbria and the mesosalpinx was cut and cauterized. Fallopian tube was removed from the abdominal cavity and sent to pathology. Left utero-ovarian ligament was noted cut and cauterized. Left uterine vessels were cut and cauterized and lateralized beyond the level of colpotomy cup. Circumferential colpotomy was made to uterus was removed from the abdominal cavity. Good hemostasis was noted. Colpotomy was closed in a continuous running locked fashion. Good hemostasis was noted. Cystoscopy was performed and the above findings were noted. Abdomen was desufflated trochars removed under direct visualization good hemostasis noted. Skin was closed in subcuticular fashion. All counts correct x2. Patient tolerated procedure well was brought to recovery in stable condition. concession stand attendant: Harvey Cortes
[2020-07-08] MEDS: oxyCODONE 5 MG Tablet PO (13:11)
== END 2020-07-08 15:26 ==
LOC: SDC 05:34 → AC 05:34
PROVIDERS: Anesthesiology; PCP Internal Medicine; Referring Provider Obstetrics & Gynecology; Visit Provider Obstetrics & Gynecology
PROC: 0UT90ZZ Resection of Uterus, Open Approach (ICD-10-PCS; CPT 58571; principal; 2020-07-08 07:10)
DX: D25.1 Intramural leiomyoma of uterus (principal); D25.0 Submucous leiomyoma of uterus; D25.2 Subserosal leiomyoma of uterus; N80.0 Endometriosis of uterus
CPT/HCPCS: 00944; 58571; S2900; 36415; 80076; 81025; 82962; 83735; 85027; 85610; 85730; 86850; 86900; 86901; 88307; J7120; J2405